=== PATIENT | female | born 1945 | race Caucasian/White ===

== ENCOUNTER → 2017-10-20 | Outpatient (CLI) | payer MEDICARE, OTHER ==
[~2017-10-20] MED LIST: ALIS1TAB2 PO; AMLO10TA PO; AMOX-355 PO; CALC65TA PO; CIPR500T78 PO; CLCX200C PO; CLON0.2T PO; FERR325T74 PO; FEXO-104 PO; FISH1CAP15 PO; FLT05NA16 NSEACH; FLUT1DIS3 IH; FOLI1TAB7 PO; HYDR-3454 PO; HYDR-707 PO; HYDR25TA4 PO; LATA2.5D19 OD; LOSA50TA6 PO; MONT10TA21 PO; NFNEB10T PO; NIAC1CAP PO; NIAC1TBM5 PO; OMEP1CAP10 PO; PENT100C5 PO; POLY-IRON PO; POTA10CA43 PO; PRD20T PO; PRELIEF PO; SIMV20TA3 PO; TRAM50TA2 PO; [UNRECOGNIZED DRUG - CODE] PO; [UNRECOGNIZED DRUG - REMARK] OU
--- NOTE | 2017-10-20 11:26 | Diagnostic Imaging Report ---
PROCEDURE: MRI right joint upper extremity without contrast. TECHNIQUE: A multiplanar/multisequence noncontrast enhanced MRI of the right upper extremity was accomplished. INDICATION: Shoulder Pain. FINDINGS: On the T2 fat-saturated coronal series, there is a small area of increased signal along the anterior insertion of the rotator cuff. This does suggest a small partial tear. Furthermore, there is an area of abnormal signal in the midportion of the rotator cuff as the musculotendinous portion of the supraspinous muscle courses over the humeral head. I suspect that a portion of the rotator cuff and musculotendinous portion of the supraspinous muscle are partially torn. The supraspinous muscle itself is not retracted or bunched. There is hypertrophy of the acromioclavicular joint and this does result in mild narrowing of the outlet for the supraspinous muscle. There is also a trace amount of fluid in the subdeltoid bursa and this does suggest that there is an element of inflammation present as well. The biceps tendon and the subscapularis tendon are intact. The labrum is thinned posteriorly and may be torn on a degenerative basis. There is no acute labral tear identified. There is no sign of a joint effusion. There is no abnormal signal arising from the osseous structures to suggest bone edema or fracture. IMPRESSION: 1. There is a small tear of the anterior insertion of the rotator cuff. There also appears to be a partial tear of the junction of the musculotendinous portion and the rotator cuff. The supraspinous muscle, however, is not retracted or bunched. 2. There is hypertrophy of the acromioclavicular joint and this does result in mild narrowing of the outlet for the supraspinous muscle. 3. The trace amount of fluid in the subdeltoid bursa does suggest that there is an element of mild inflammation present. 4. The labrum is thinned posteriorly and most likely torn on a degenerative basis. 5. There is no sign of an acute bony abnormality. Dictated by: Dictated on workstation # [id number]
== END ==
LOC: RAD 08:09
PROVIDERS: ATTEND Orthopaedic Surgery
DX: M75.101 Unspecified rotator cuff tear or rupture of right shoulder, not specified as traumatic (principal); M89.311 Hypertrophy of bone, right shoulder; M62.89 Other specified disorders of muscle
CPT/HCPCS: 73221

== ENCOUNTER 2022-10-02 05:34 | Outpatient (CLI) | payer MEDICARE, OTHER ==
[~2022-10-02] VITALS: Ht 165.1 cm; Wt 73.6 kg
[2022-10-07] MEDS ORDERED: SPIR25TA PO (11:16)
[2022-10-07] MEDS ORDERED: CEPH250T PO (11:16)
[2022-10-07] MEDS ORDERED: HYDR50TA6 PO (11:16)
[2022-10-07] MEDS ORDERED: NYST15CR36 TP (11:16)
[2022-10-07] MEDS ORDERED: TORS20TA3 PO (11:16)
[2022-10-07] MEDS ORDERED: RT-ALBUINH INH (11:16)
== END 2022-10-07 16:37 | disposition home or self-care (01) ==
LOC: PREOP 05:34
PROVIDERS: ATTEND Otolaryngology Otolaryngology/Facial Plastic Surgery
DX: Z01.818 Encounter for other preprocedural examination (principal)

== ENCOUNTER 2022-10-09 06:47 | Day surgery (SDC) | payer MEDICARE, OTHER ==
--- NOTE | 2022-10-01 16:24 | HISTORY AND PHYSICAL ---
Outpatient surgery on 10/09/2022 for right rotator cuff repair. HISTORY: The patient is a 76-year-old right hand dominant female with progressively worsening right shoulder pain and weakness. She reports pain with overhead activities and with lifting. She underwent an MRI, which revealed a near full-thickness supraspinatus tear with long head biceps tendinopathy. Due to the progressive symptoms and failure to improve with conservative measures, the patient elected to proceed with surgical intervention. REVIEW OF SYSTEMS: No chest pain or shortness of breath. No dysuria. PAST MEDICAL HISTORY: Iron deficiency anemia, reflux, hypertension, osteoarthritis, glaucoma, neuropathy, herpes keratosis, type 2 diabetes, chronic renal insufficiency. PAST SURGICAL HISTORY: Sinus, total knee arthroplasty and bilateral eyes. FAMILY HISTORY: Noncontributory. PRIMARY CARE PROVIDER: Dr. Velazquez. MEDICATIONS: 1. Wixela. 2. Torsemide. 3. Spironolactone. 4. Simvastatin. 5. Potassium. 6. Omeprazole. 7. Nystatin. 8. Nyamyc. 9. Niacin. 10. Nebivolol. 11. Montelukast. 12. Hydralazine. 13. Elmiron. 14. Clonidine. 15. Amlodipine. 16. Allopurinol. 17. Albuterol. 18. Valium. ALLERGIES: NO KNOWN DRUG ALLERGIES. SOCIAL HISTORY: The patient denies alcohol or tobacco use. PHYSICAL EXAMINATION: GENERAL: The patient is well-developed, well-nourished, in no acute distress. HEENT: Normocephalic, atraumatic. Pupils equal, round and reactive to light. Oropharynx is clear. NECK: Supple. No lymphadenopathy. LUNGS: Clear to auscultation bilaterally. HEART: Regular rate and rhythm. ABDOMEN: Soft, nontender, nondistended. EXTREMITIES: The right shoulder demonstrates weakness with abduction and external rotation. She has a positive Neer's and positive Naranjo sign. She has weakness with abduction and external rotation. IMPRESSION: Right shoulder rotator cuff tear. PLAN: Right shoulder arthroscopy with biceps tenotomy, acromioplasty and open rotator cuff repair. The risks, benefits, options, ramifications and recovery have been discussed at length with the patient. She understands and wishes to proceed. Job ID: [id number] DocumentID: [id number] Dictated Date: 09/30/2022 11:25:55 Boat Dispatcher Date: 09/30/2022 13:25:00 Dictated By: TEODORO MARRERO MD
[~2022-10-09] VITALS: Ht 165.1 cm; Wt 73.6 kg
[2022-10-09] VITALS (11 sets, daily range): BP systolic 138–191; BP diastolic 53–92
[~2022-10-09 06:47] MED LIST changes: +CEPH250T PO; +HYDR50TA6 PO; +NYST15CR36 TP; +RT-ALBUINH INH; +SPIR25TA PO; +TORS20TA3 PO
[2022-10-09] MEDS ORDERED: HYDROcodone/APAP 7.5 MG/325 MG (LORTAB, LORCET PLUS) TABLET PO PRN (07:15)
[2022-10-09] MEDS ORDERED: proPOfol 200 MG/20 ML (DIPRIVAN) VIAL IV ONE (07:22)
[2022-10-09] MEDS ORDERED: SEVOFLURANE (ULTANE) 15 ML INHAL SOLN ONE ×2 (07:22→09:22)
[2022-10-09] MEDS ORDERED: ROCURONIUM 50 MG/5 ML (ZEMURON) VIAL IV ONE (07:22)
[2022-10-09] MEDS ORDERED: LIDOCAINE PF 2% 5 ML (XYLOCAINE) VIAL ONE ×2 (07:22→07:32)
[2022-10-09] MEDS ORDERED: fentaNYL INJ 100 MCG/2 ML AMP ONE (07:22)
[2022-10-09] MEDS ORDERED: MIDAZOLAM 2 MG/2 ML (VERSED) VIAL ONE (07:23)
[2022-10-09] MEDS ORDERED: ROPIVACAINE 5MG/ML 30ML VIAL ONE (07:30)
--- NOTE | 2022-10-09 07:36 | Progress Note-Pre Operative ---
Pre-Operative Progress Note Date of Available H&P: Oct 01, 2022 Date H&P Reviewed: Oct 09, 2022 Time H&P Reviewed: 07:36 Changes from last HP none Pre-Operative Diagnosis: right SLAP and rotator cuff tears TEODORO MARRERO MD Oct 09, 2022 07:36
--- NOTE | 2022-10-09 07:37 | Progress Note-Post Operative ---
Post-Operative Progess Note Surgeon (s)/Car Tracer (s) Surgeon TEODORO MARRERO MD Car Tracer: Deo Brunner Pre-Operative Diagnosis right SLAP and rotator cuff tears Post-Operative Diagnosis right SLAP and rotator cuff tears Procedure & Operative Findings Date of Procedure 10/09/22 Procedure Performed/Findings right shoulder arthroscopic biceps tenotomy, acromioplasty and open rotator cuff repair Anesthesia Type GETA Estimated Blood Loss Estimated blood loss (mL): minimal Specimens/Packing Specimens Removed none Packing: none TEODORO MARRERO MD Oct 09, 2022 07:37
[2022-10-09] MEDS ORDERED: FAMOTIDINE 20MG/2ML IV (PEPCID) IVP ONE (08:00)
[2022-10-09] MEDS ORDERED: ceFAZolin INJECTION 2,000 MG in NS (IVPB) 50 ML IV ONE (08:00)
[2022-10-09] MEDS ORDERED: ONDANSETRON 4 MG/2 ML (SDV) Z0FRAN IVP ONE (08:00)
[2022-10-09] MEDS ORDERED: LACTATED RINGERS 1,000 ML IV PRN (08:00)
[2022-10-09] MEDS ORDERED: morphine PF (DURAMORPH) 10 MG/10 ML AMP ONE (08:02)
[2022-10-09] MEDS ORDERED: BUP/EPI 0.25% 1:200,000 (MARCAINE) 30 ML VIAL ONE (08:02)
[2022-10-09] MEDS ORDERED: BUPIVACAINE 0.25% 30 ML (SENSORCAINE) VIAL ONE (08:04)
--- NOTE | 2022-10-09 09:48 | Anesthesia-General Post-Op ---
General Patient Condition Mental Status/LOC: Same as Preop Cardiovascular: Satisfactory Nausea/Vomiting: Absent Respiratory: Satisfactory Pain: Controlled Complications: Absent Post Op Complications Complications None Follow Up Care/Instructions Patient Instructions None needed. Anesthesia/Patient Condition Patient Condition Patient is doing well, no complaints, stable vital signs, no apparent adverse anesthesia problems. No complications reported per nursing. VIKTORIA CROWDER CRNA Oct 09, 2022 09:48
[2022-10-09] MEDS ORDERED: HYDROmorphone 2 MG/ML VIAL (DILAUDID) IV ONE (10:00)
[2022-10-09] MEDS ORDERED: PROMETHAZINE INJ 25 MG/ML (PHENERGAN) AMP IVP ONE (10:00)
[2022-10-09] MEDS ORDERED: morphine INJ 10 MG/ML 1ML (SYR OR VIAL) IVP ONE (10:00)
[2022-10-09] MEDS ORDERED: fentaNYL INJ 100 MCG/2 ML AMP IVP ONE (10:00)
[2022-10-09] MEDS ORDERED: ONDANSETRON 4 MG/2 ML (SDV) Z0FRAN IVP PRN (10:00)
[2022-10-09] MEDS ORDERED: MEPERIDINE (DEMEROL) INJ 50 MG/ML IVP ONE (10:00)
--- NOTE | 2022-10-09 13:19 | OPERATIVE REPORT ---
DATE OF SERVICE: 10/09/2022 PREOPERATIVE DIAGNOSES: 1. Right rotator cuff tear. 2. Right shoulder SLAP tear. POSTOPERATIVE DIAGNOSES: 1. Right rotator cuff tear. 2. Right shoulder SLAP tear. PROCEDURES: 1. Right shoulder open rotator cuff repair. 2. Right shoulder arthroscopic biceps tenotomy. 3. Right shoulder arthroscopic acromioplasty. SURGEON: Woo Marrero MD CREDIT CARD ANALYST: Deo Brunner, who assisted throughout the procedure and closed the incisions. ANESTHESIA: General endotracheal by Kem Armenta CRNA. ESTIMATED BLOOD LOSS: Minimal. DRAINS: None. COMPLICATIONS: None. POSTOPERATIVE PLAN: Routine protocol with passive range of motion and sling wear for 4 weeks. The patient was transferred to the recovery room awake and in stable condition. STATEMENT OF MEDICAL NECESSITY: The patient is a 76-year-old right hand dominant female with complaints of right shoulder pain and weakness. She underwent an MRI which revealed a full-thickness supraspinatus tear as well as a SLAP tear. She has undergone treatment with injections, anti-inflammatories, rest and home therapy without relief. Due to functional impairment and failure to improve with conservative measures, the patient elected to proceed with surgical intervention. Examination under anesthesia revealed forward elevation 170 degrees, external rotation of 80 degrees, internal rotation of 70 degrees. Arthroscopic findings demonstrated full-thickness supraspinatus tear with a type 2 SLAP tear. There was grade 2 chondral loss of [ ] portion of the glenoid and humeral head in adjacent 20 x 20 area, but no unstable chondral flaps. The subacromial space demonstrated dense bursitis with sloping in the anterolateral acromion. DESCRIPTION OF PROCEDURE: After risks and benefits of the procedure were discussed and questions were answered and informed consent was signed and placed on the chart, the operative site was confirmed in the preoperative holding area initialed by the surgeon. The patient was then transported to the operating room and after adequate levels of general endotracheal anesthetic were obtained, timeout was called, confirming the operative site. Examination under anesthesia was performed with the above findings noted. The right shoulder and upper extremity were prepped and draped in the usual sterile fashion. The shoulder joint was injected with 20 mL of fluid as well as subacromial space. A standard posterior portal was placed under direct visualization, anterior portal was created in the interval between the biceps, subscapularis and glenoid. The biceps anchor was released. The stump was debrided with a shaver. Scope was then redirected into the subacromial space. A lateral portal was created. Bursectomy was performed and acromion was planed to a flat type 1 acromion. A lateral portal was then extended. The deltoid was split in line with its fibers leaving attached to the acromion. Rotator cuff tear was mobilized and repaired to a bleeding bony bed just off the articular surface using a single corkscrew anchor in a modified Xavier-Huy repair. Excellent repair was obtained with no undue tension noted with the arm at the side. The wound was copiously irrigated. Deltoid was repaired in a [id number] fashion using #2 FiberWire in [id number] interrupted fashion. The wound was further irrigated, 3-0 Vicryl was used to reapproximate subcutaneous tissue. Skin was closed with 4-0 nylon in running alternating horizontal mattress fashion. The incisions were infiltrated with plain Marcaine. The shoulder joint was injected with Duramorph. A soft dressing and sling were applied. The patient was transferred to the recovery room awake and in stable condition. Job ID: [id number] DocumentID: [id number] Dictated Date: 10/09/2022 09:34:53 Assistant Store Manager Operations Date: 10/09/2022 13:17:00 Dictated By: WOO MARRERO MD
== END 2022-10-09 11:45 ==
LOC: SDC 06:47
PROVIDERS: ATTEND Orthopaedic Surgery
DX: M75.111 Incomplete rotator cuff tear or rupture of right shoulder, not specified as traumatic (principal); S43.431A Superior glenoid labrum lesion of right shoulder, initial encounter; X58.XXXA Exposure to other specified factors, initial encounter
CPT/HCPCS: 23412; 29822; 29826; 87081; C1713